=== PATIENT | male | born 1980 | race Caucasian/White ===

== ENCOUNTER 2021-09-28 10:48 | Emergency (ER) | payer SELFPAY ==
[~2021-09-28] VITALS: Ht 182.9 cm; Wt 90.9 kg
[2021-09-28 10:56] VITALS: BP 131/88
== END 2021-09-28 12:25 | disposition home or self-care (01) ==
LOC: ER 10:49
DX: M25.561 Pain in right knee (principal); M25.461 Effusion, right knee
CPT/HCPCS: 99282

== ENCOUNTER 2021-10-05 05:47 | Emergency (ER) | payer OTHER ==
[~2021-10-05] VITALS: Ht 182.9 cm; Wt 88.6 kg
[2021-10-05 05:49] VITALS: BP 135/96
--- NOTE | 2021-10-05 06:07 | NUR ---
TC TO [facility] TO INFORM THAT PATIENT WOULD LIKE TO FILE POLICE RPORT. CASE NUMBER IS: [id number]. OFFICER WILL BE COMING TO GATHER INFORMATION FOR REPORT.
[2021-10-05] MEDS ORDERED: ibuprofen tablet 400 MG TABLET PO ONE (07:30)
[2021-10-05] MEDS ORDERED: acetaminophen 325mg tablet PO ONE (07:30)
== END 2021-10-05 07:58 | disposition home or self-care (01) ==
LOC: ER 05:47
DX: T76.21XA Adult sexual abuse, suspected, initial encounter (principal); M54.89 Other dorsalgia; G89.29 Other chronic pain; Z98.890 Other specified postprocedural states; Y08.89XA Assault by other specified means, initial encounter; Y93.89 Activity, other specified; Y92.89 Other specified places as the place of occurrence of the external cause; Y99.8 Other external cause status
CPT/HCPCS: 99281